=== PATIENT | male | born 1970 | race Caucasian/White ===

== ENCOUNTER 2021-07-02 22:32 | Inpatient (IN) | payer BC ==
[~2021-07-02] VITALS: Ht 182.9 cm; Wt 176.1 kg
[2021-07-02] MEDS ORDERED: METHYLPREDNISOLONE SOD SUCC 125 MG/2ML VIAL IV ONE (22:45)
[2021-07-02 23:01] LABS: BASOPHILS # (AUTO) 0.1 (0.0-0.1); BASOPHILS % 0.8 % (0.0-1.0); EOSINOPHILS # (AUTO) 0.5 (0.0-0.4); EOSINOPHILS % 5.4 % (0.0-6.0); HEMATOCRIT 43.7 % (38.2-49.6); HEMOGLOBIN 13.7 g/dL (14.0-18.0); LYMPHOCYTES # (AUTO) 2.2 (1.0-3.2); LYMPHOCYTES % 22.9 % (18.0-39.1); MEAN CORPUSCULAR HEMOGLOBIN 27.9 pg (28-32); MEAN CORPUSCULAR HGB CONC 31.4 g/dL (31-35); MONOCYTES # (AUTO) 0.6 (0.2-0.8); MONOCYTES % 6.7 % (4.4-11.3); NEUTROPHILS # (AUTO) 6.1 (2.1-6.9); NEUTROPHILS % 62.8 % (38.7-80.0); PLATELET COUNT 257 x10e3/uL (140-360); RED BLOOD COUNT 4.91 x10e6/uL (4.3-5.7); RED CELL DISTRIBUTION WIDTH 13.2 % (11.7-14.4)
[2021-07-02 23:15] LABS: ALBUMIN 3.8 g/dL (3.5-5.0); ALBUMIN/GLOBULIN RATIO 1.1 (0.8-2.0); ANION GAP 14.9 mmol/L (8-16); CALCIUM 8.9 mg/dL (8.4-10.2); CREATININE, SERUM 1.01 mg/dL (0.72-1.25); POTASSIUM 3.9 mmol/L (3.5-5.1)
[2021-07-02 23:37] LABS: CREATINE KINASE MB 1.1 ng/mL (0-5.0)
[2021-07-03] VITALS (7 sets, daily range): BP systolic 114–127; BP diastolic 45–83
[2021-07-03] MEDS ORDERED: SODIUM CHLORIDE 0.9% 50ML 50 ML ONE
[2021-07-03] MEDS ORDERED: IOPAMIDOL 370 MG/ML 200 ML INFUS..BTL INJ ONE
[2021-07-03] MEDS ORDERED: ASPIRIN 81 MG CHEW TAB PO ONE (01:00)
[2021-07-03] MEDS ORDERED: ASPIRIN CHEW81 MG PO (03:46)
[2021-07-03] MEDS ORDERED: PROAIR HFA INH8.5 GM IH (03:46)
[2021-07-03] MEDS ORDERED: LIPITOR20 MG PO (03:46)
[2021-07-03] MEDS ORDERED: ACETAMINOPHEN 325 MG TAB PO PRN (08:00)
[2021-07-03] MEDS ORDERED: ONDANSETRON HCL INJ 2MG/ML 2ML 2 MG/ML VIAL IV PRN (08:00)
[2021-07-03 08:06] LABS: CREATINE KINASE 148 IU/L (30-200)
[2021-07-03] MEDS: ALBUTEROL/IPRATROPIUM 3 ML NEB NEB SCH ×5 (08:20→23:00)
[2021-07-03] MEDS ORDERED: ALBUTEROL SULFATE HFA 8GM INHALATION AEROSOL INH PRN (14:15)
[2021-07-03 16:29] LABS: CREATINE KINASE MB 1.2 ng/mL (0-5.0)
[2021-07-03] MEDS ORDERED: CLOPIDOGREL BISULFATE 75 MG TAB PO NR (16:30)
[2021-07-03] MEDS ORDERED: ENOXAPARIN SOD INJ 40 MG/0.4 ML SYR SC SCH (17:00)
[2021-07-03] MEDS: ATORVASTATIN 40 MG TAB PO SCH (21:07)
[2021-07-03] MEDS: ZOLPIDEM TARTRATE 5 MG TAB PO PRN (21:17)
[2021-07-04] VITALS (17 sets, daily range): BP systolic 99–163; BP diastolic 67–96
[2021-07-04] MEDS: SODIUM CHLORIDE 0.9% 1000ML 1,000 ML IV SCH ×3 (05:00→20:29)
[2021-07-04 05:35] LABS: BASOPHILS # (AUTO) 0.1 (0.0-0.1); BASOPHILS % 0.4 % (0.0-1.0); EOSINOPHILS # (AUTO) 0.1 (0.0-0.4); EOSINOPHILS % 0.4 % (0.0-6.0); HEMATOCRIT 39.4 % (38.2-49.6); HEMOGLOBIN 12.4 g/dL (14.0-18.0); LYMPHOCYTES # (AUTO) 1.9 (1.0-3.2); LYMPHOCYTES % 14.9 % (18.0-39.1); MEAN CORPUSCULAR HEMOGLOBIN 28.1 pg (28-32); MEAN CORPUSCULAR HGB CONC 31.5 g/dL (31-35); MEAN CORPUSCULAR VOLUME 89.3 fL (81-99); MONOCYTES # (AUTO) 0.8 (0.2-0.8); MONOCYTES % 6.3 % (4.4-11.3); NEUTROPHILS # (AUTO) 9.8 (2.1-6.9); NEUTROPHILS % 76.7 % (38.7-80.0); PLATELET COUNT 242 x10e3/uL (140-360); RED BLOOD COUNT 4.41 x10e6/uL (4.3-5.7); RED CELL DISTRIBUTION WIDTH 13.2 % (11.7-14.4)
[2021-07-04 06:04] LABS: ALBUMIN 3.1 g/dL (3.5-5.0); ANION GAP 13.8 mmol/L (8-16); CALCIUM 7.9 mg/dL (8.4-10.2); CREATININE, SERUM 0.78 mg/dL (0.72-1.25); POTASSIUM 3.8 mmol/L (3.5-5.1)
[2021-07-04 06:05] LABS: CHOL/HDL RATIO 4.4 (3.9-4.7)
[2021-07-04] MEDS: ALBUTEROL/IPRATROPIUM 3 ML NEB NEB SCH ×5 (06:50→22:10)
[2021-07-04] MEDS: ASPIRIN 81 MG CHEW TAB PO SCH (08:29)
[2021-07-04] MEDS ORDERED: LIDOCAINE HCL 2% LOCAL 20 ML VIAL ONE ×2 (08:51→09:15)
[2021-07-04] MEDS ORDERED: MIDAZOLAM HCL 2 MG/2 ML VIAL ONE (09:15)
[2021-07-04] MEDS ORDERED: FENTANYL CITRATE/PF 100MCG/2 ML INJ ONE (09:15)
[2021-07-04] MEDS ORDERED: IOPAMIDOL 370 MG/ML 200 ML INFUS..BTL INJ ONE (09:15)
[2021-07-04] MEDS ORDERED: SODIUM CHLORIDE 0.9% 1000ML 1,000 ML ONE (09:15)
[2021-07-04] MEDS ORDERED: HEPARIN SOD/SOD CHLORIDE 2,000 ML ONE (09:15)
[2021-07-04] MEDS ORDERED: NITROGLYCERIN/D5W 200 MCG/ML 250 ML ONE (09:18)
[2021-07-04] MEDS ORDERED: HEPARIN SOD (PORCINE) 1000 UNIT/ML 30ML ONE (09:18)
[2021-07-04] MEDS ORDERED: VERAPAMIL HCL 2.5 MG/ML 2 ML VIAL ONE (09:18)
[2021-07-04] MEDS: ATORVASTATIN 40 MG TAB PO SCH (21:34)
[2021-07-04] MEDS: ZOLPIDEM TARTRATE 5 MG TAB PO PRN (22:05)
[2021-07-05] VITALS: BP 137/66
[2021-07-05] MEDS: ALBUTEROL/IPRATROPIUM 3 ML NEB NEB SCH ×3 (02:35→11:10)
[2021-07-05] MEDS: SODIUM CHLORIDE 0.9% 1000ML 1,000 ML IV SCH ×2 (03:27→13:00)
[2021-07-05 04:00] VITALS: BP 139/66
[2021-07-05 08:05] VITALS: BP 144/73
[2021-07-05 08:42] VITALS: BP 144/73
[2021-07-05] MEDS: ASPIRIN 81 MG CHEW TAB PO SCH (09:08)
[2021-07-05] MEDS ORDERED: ONDANSETRON HCL 4 MG ORAL DISINTEGRATING TAB PO PRN (11:30)
[2021-07-05 11:32] VITALS: BP 156/106
[2021-07-05 11:50] VITALS: BP 133/77
== END 2021-07-05 15:41 | disposition home or self-care (01) | DRG 205 ==
LOC: ER 22:40 → ERHOLD 07-03 00:51 → MED/SURG 07-03 03:12 → OBSVTOIN 07-04 15:55
PROVIDERS: ADMIT Internal Medicine; ATTEND Internal Medicine
PROC: 4A023N8 Measurement of Cardiac Sampling and Pressure, Bilateral, Percutaneous Approach (ICD-10-PCS; principal; 2021-07-04)
PROC: B2111ZZ Fluoroscopy of Multiple Coronary Arteries using Low Osmolar Contrast (ICD-10-PCS; 2021-07-04)
PROC: B2161ZZ Fluoroscopy of Right and Left Heart using Low Osmolar Contrast (ICD-10-PCS; 2021-07-04)
DX: E66.2 Morbid (severe) obesity with alveolar hypoventilation (principal); J96.01 Acute respiratory failure with hypoxia; Z68.43 Body mass index [BMI] 50.0-59.9, adult; G47.33 Obstructive sleep apnea (adult) (pediatric); R00.0 Tachycardia, unspecified; I10 Essential (primary) hypertension; E78.00 Pure hypercholesterolemia, unspecified; Z20.822 Contact with and (suspected) exposure to COVID-19
CPT/HCPCS: 36415; 71260; 76937; 80053; 80061; 82550; 82553; 83605; 84443; 84484; 85025; 87040; 93005; 93306; 93460; 94640; 94799; 99152; 99153; 99284; C1751; C1766; C1769; C1887; G0378; J1644; J1650; J2001; J2250; J2930; J3010; J7030; Q9967; U0002

== ENCOUNTER 2021-08-26 20:14 | Emergency (ER) | payer BC ==
[~2021-08-26] VITALS: Ht 182.9 cm; Wt 176.0 kg
[~2021-08-26 20:14] MED LIST: ASPIRIN CHEW81 MG PO; LIPITOR20 MG PO; PROAIR HFA INH8.5 GM IH
[2021-08-26 20:54] LABS: BASOPHILS # (AUTO) 0.1 (0.0-0.1); BASOPHILS % 0.7 % (0.0-1.0); EOSINOPHILS # (AUTO) 0.5 (0.0-0.4); EOSINOPHILS % 5.5 % (0.0-6.0); HEMATOCRIT 44.1 % (38.2-49.6); HEMOGLOBIN 13.9 g/dL (14.0-18.0); LYMPHOCYTES # (AUTO) 1.7 (1.0-3.2); LYMPHOCYTES % 20.8 % (18.0-39.1); MEAN CORPUSCULAR HGB CONC 31.5 g/dL (31-35); MEAN CORPUSCULAR VOLUME 88.7 fL (81-99); MONOCYTES # (AUTO) 0.6 (0.2-0.8); MONOCYTES % 7.2 % (4.4-11.3); NEUTROPHILS # (AUTO) 5.4 (2.1-6.9); NEUTROPHILS % 64.8 % (38.7-80.0); PLATELET COUNT 261 x10e3/uL (140-360); RED BLOOD COUNT 4.97 x10e6/uL (4.3-5.7); RED CELL DISTRIBUTION WIDTH 13.2 % (11.7-14.4)
[2021-08-26 21:05] LABS: INR 0.91
[2021-08-26 21:06] LABS: PARTIAL THROMBOPLASTIN TIME 27.4 seconds (23.8-35.5)
[2021-08-26 21:18] LABS: ALBUMIN 3.9 g/dL (3.5-5.0); ALBUMIN/GLOBULIN RATIO 1.2 (0.8-2.0); ANION GAP 13.9 mmol/L (8-16); CALCIUM 9.3 mg/dL (8.4-10.2); CREATININE, SERUM 0.85 mg/dL (0.72-1.25); POTASSIUM 3.9 mmol/L (3.5-5.1)
[2021-08-26] MEDS ORDERED: CEFTRIAXONE 1 GM in SODIUM CHLORIDE 0.9% 50ML 50 ML IV ONE (22:00)
[2021-08-26] MEDS ORDERED: DEXAMETHASONE SOD PHOS 10 MG/1 ML VIAL IV ONE (22:00)
[2021-08-26 22:23] LABS: ABG HCO3 24 mmol/L (22-26); ABG PCO2 33 mmHg (35-45); ABG PH 7.47 (7.35-7.45); ABG PO2 158 mmHg (80-105); ABG TCO2 25
[2021-08-26 22:29] LABS: CREATINE KINASE MB 1.8 ng/mL (0-5.0)
[2021-08-26] MEDS ORDERED: DEXAMETHASONE4 MG PO (22:58)
[2021-08-26] MEDS ORDERED: BROMFED DM COU118 ML PO (22:58)
[2021-08-26] MEDS ORDERED: ALBUTEROL1.25 MG/3 NEB (22:58)
== END 2021-08-27 00:25 | disposition home or self-care (01) ==
LOC: ER 20:17
DX: U07.1 COVID-19 (principal); I10 Essential (primary) hypertension; E78.5 Hyperlipidemia, unspecified; G47.33 Obstructive sleep apnea (adult) (pediatric)
CPT/HCPCS: 36415; 36600; 70450; 71045; 80053; 82550; 82553; 82805; 83880; 84484; 85025; 85610; 85730; 93005; 94799; 99284; J0456; J0696; J1100; J7050; U0002